=== PATIENT | male | born 1950 | race American Indian/Alaskan Native ===

== ENCOUNTER → 2018-09-14 | Day surgery (SDC) | payer MEDICARE, OTHER ==
[~2018-09-14] MED LIST: Lactated Ringers 1,000 ML IV SCH; Lidocaine 1% PF 2 ML SDV INJECT ONE; Propofol 200 MG/20 ML SDV IV ONE
--- NOTE | 2018-09-14 09:51 | PCM.OPNOTE ---
- General Post-Op/Procedure Note Date of Surgery/Procedure: 09/14/18 Operative Procedure(s): c scope with bx Findings: descending and rectal polyp Pre Op Diagnosis: screening Post-Op Diagnosis: descending and rectal polyp Anesthesia Technique: Moderate Sedation Primary Surgeon: Timmy Nolasco Anesthesia Provider: Aaron Moody Pathology: descending and rectal polyp Complications: None Condition: Good Free Text/Narrative:: see dictation
--- NOTE | 2018-09-14 15:10 | OR ---
DATE OF OPERATION: 09/14/2018 SURGEON: Timmy Nolasco MD PROCEDURE PERFORMED: Colonoscopy with hot loop snare biopsy. PREOPERATIVE DIAGNOSIS: Need for screening C-scope. POSTOPERATIVE DIAGNOSES: 1. Polyp of the descending colon. 2. Polyp of the rectum. INDICATIONS FOR PROCEDURE: This is a 68-year-old white male who presents for a screening colonoscopy. Last procedure was 15 years ago. He was offered and accepted same. DESCRIPTION OF OPERATION: After an excellent IV sedation was administered, digital rectal exam was performed. No marked abnormality was noted. Flexible colonoscope was inserted and advanced to the cecum. Prep was excellent. The following findings were noted. Ascending colon, unremarkable. Transverse colon, unremarkable. Descending colon, at the distal descending colon, small pedunculated polyp, photo was taken. Hot loop snare was used to transect it at its base and it was submitted. Sigmoid was unremarkable. At the proximal rectum, another polyp, again biopsied and retrieved after removing it with a hot loop snare. Photo was also taken. The patient tolerated the procedure well and was taken to recovery. Results by letter. /[id number] /MODL
== END | disposition home or self-care (01) ==
LOC: FB.SDS 08:09
PROVIDERS: ATTEND Surgery
DX: Z12.11 Encounter for screening for malignant neoplasm of colon (principal); D12.4 Benign neoplasm of descending colon; D12.8 Benign neoplasm of rectum; H91.90 Unspecified hearing loss, unspecified ear; K21.9 Gastro-esophageal reflux disease without esophagitis; Z87.891 Personal history of nicotine dependence; Z79.899 Other long term (current) drug therapy
CPT/HCPCS: 00811; 45384; J2001; J2704; J7120; 88305

== ENCOUNTER 2023-08-03 09:25 | Day surgery (SDC) | payer MEDICARE, OTHER ==
[2023-08-03] MEDS ORDERED: Midazolam 1 MG/ML 2 ML SDV IV ONE (09:26)
[2023-08-03] MEDS ORDERED: fentaNYL 100 MCG/2 ML SDV IV ONE (09:26)
[2023-08-03] MEDS ORDERED: Lactated Ringers 1,000 ML IV PRN (09:30)
[2023-08-03] MEDS: Sodium Chloride 0.9% 10 ML Syringe FLUSH PRN (10:00)
[2023-08-03] MEDS: acetaZOLAMIDE 500 MG Cap.ER PO ONE (11:06)
== END 2023-08-03 11:35 | disposition home or self-care (01) ==
LOC: FB.SDS 09:25
PROVIDERS: ATTEND Ophthalmology
DX: H26.9 Unspecified cataract (principal); H52.201 Unspecified astigmatism, right eye; K21.9 Gastro-esophageal reflux disease without esophagitis; Z79.899 Other long term (current) drug therapy; Z98.890 Other specified postprocedural states; Z87.891 Personal history of nicotine dependence
CPT/HCPCS: A9270-GY; J2250; J3010; J3490

== ENCOUNTER 2023-08-17 08:14 | Day surgery (SDC) | payer MEDICARE, OTHER ==
[2023-08-17] MEDS ORDERED: fentaNYL 100 MCG/2 ML SDV IV ONE (08:15)
[2023-08-17] MEDS ORDERED: Midazolam 1 MG/ML 2 ML SDV IV ONE (08:15)
[2023-08-17] MEDS ORDERED: Lactated Ringers 1,000 ML IV PRN (08:30)
[2023-08-17] MEDS: Sodium Chloride 0.9% 10 ML Syringe FLUSH PRN (09:00)
[2023-08-17] MEDS: acetaZOLAMIDE 500 MG Cap.ER PO ONE (10:49)
== END 2023-08-17 11:08 | disposition home or self-care (01) ==
LOC: FB.SDS 08:14
PROVIDERS: ATTEND Ophthalmology
DX: H26.9 Unspecified cataract (principal); H52.202 Unspecified astigmatism, left eye; K21.9 Gastro-esophageal reflux disease without esophagitis; N18.9 Chronic kidney disease, unspecified; G47.33 Obstructive sleep apnea (adult) (pediatric); E66.9 Obesity, unspecified; Z68.26 Body mass index [BMI] 26.0-26.9, adult; Z87.891 Personal history of nicotine dependence
CPT/HCPCS: A9270-GY; J2250; J3010; J3490